=== PATIENT | female | born 1990 | race Caucasian/White ===

== ENCOUNTER 2017-07-25 11:50 | Inpatient (IN) | payer BC, OTHER ==
[~2017-07-25] VITALS: Ht 160 cm; Wt 55.8 kg
--- NOTE | 2017-07-25 15:45 | NUR ---
PRE-ASSESSMENT: Pre-Assessment done at intake office, client is A/O to name, place and situation, she presents with flat affect, anxious mood, pin point pupils noted, client's speech is fast, loud, incoherent, disorganized , she abruptly changes topics. Vitals T 98, RR 18, BP 128/80, HR 69, spO2 @ 99% on RA, Pain 0/10. She is fully ambulatory. She denies any allergies; she reports withdrawal-induced seizure (May 2017). PMH: Anxiety, Depression, ADHD. Medications taken at home Soma 3500mg TID PO Gabapentin 800mg TID PO. Ambien 10mg PO Azithromycin 250 mg PO daily Substance history Heroin 2gm smoked, (used to used via IV) daily for the past 5 days, last used 07/25/17 @ noon 1gm. Alprazolam 10mg PO daily for 7 years, last used 1 hr prior admission. Codeine 60mg (Promethazine 6.25mg/Codeine 10mg/5mL) PO for a year, last used 07/26/17. Adderall 10mg PO daily for 6 years, lasy used 07/26/17 Suboxone 15 film 15 daily SL for 8 months, last used 2 weeks ago. Subutex 18mg SL daily for 5 days, a week ago. Client informed on controlled substance, vital signs, blood drawn, and urine drug screen protocol, she verbalized understanding. Client reports a PCP, but declines to provide information.
[2017-07-25 17:32] LABS: *URINE HCG, QUAL NEGATIVE (NEGATIVE)
[2017-07-25 17:50] LABS: *AMPHETAMINE, URINE NEGATIVE (NEGATIVE); *BARBITURATE, URINE NEGATIVE (NEGATIVE); *CANNABINOID, URINE POSITIVE (NEGATIVE); *COCCAINE, URINE POSITIVE (NEGATIVE); *OPIATE, URINE POSITIVE (NEGATIVE); *PHENCYCLIDINE SCREEN,URINE NEGATIVE (NEGATIVE)
--- NOTE | 2017-07-25 18:00 | NUR ---
Nursing note 26 year old female admitted to [facility] for withdrawal from alprazolan and heroin. Client is oriented to unit, educated about protocols and how to work TV and call light in her room. Weight: 123 pounds. Height: 5'3" CIWA 3/COWS 3 Dr. Ragland notified. Urine was collected upon admission. All safety measures instituted. Seizure precaution. Call light within reach. Will continue to monitor.
[2017-07-25] MEDS ORDERED: ZOLP10TA6 PO (18:10)
[2017-07-25] MEDS ORDERED: GABA800T2 PO (18:10)
[2017-07-25] MEDS ORDERED: AZIT250T6 PO (18:10)
[2017-07-25] MEDS ORDERED: CARI350T27 PO (18:10)
--- NOTE | 2017-07-25 19:17 | NUR ---
END OF SHIFT Endorsed client to incoming nurse, client is in her room, watching TV. Seizure precautions rendered. Last CIWA 3/COWS 3. Adequate PO intake 700mL, void x 1. Side rails x 2 up/padded. Call light within reach.
--- NOTE | 2017-07-25 20:00 | NUR ---
ADMISSION NOTE Admitted a 26 y/o female px on 07/25/17 for Opiates/benzos/marijuana dependence, arrived on the unit at 1800. Pt has NKA, on regular diet, wishes to be on Full Code. Px was able to provide UDS. On admission at 1930, CIWA 15, COWS 13. BP: 114/60, P: 104, R: 18, O2: 95%, T: 98.7, Weight 123 lbs, height 5'3". Px PCP is Dr. Meza from [facility], Psychiatrist is Dr. Harvey Velazquez, cant recall the name of the clinic/hospital. Px is non-smoker. Px denies being hospitalized within past 30 days. Had hx of 3-4x seizure where the latest was May of 2017. Px is able to understand and respond to all questions pertaining to his hospitalization. Substance Abuse History is as follows: 1. Heroin 2 G smoke, previously IV, daily for past 5 days, last used 07/25/2017 at 1200, 1 G. 2. Marijuana 2 sticks/ day since highschool, last take was 07/25/2017, 1 stick 3. Alprazolam 10 mg, PO daily for 7 years, last use 1 hr prior admission. 4. Guaifenesin/Codeine phosphate 60 ml daily 5. Adderall 10 mg PO daily for 6 year, last used 07/25/2017 6. Suboxone 15 films SL daily for 8 months, last use was 2 weeks ago 7. Subutex 18 mg SL daily for 5 days last use 1 week ago Pxs longest sober period for 8 months 6 years ago. Px is first time in detox tx. PMH: Anxiety, depression and ADHD. Px brought medications from home, to be reconcile. Upon assessment, pt is AAOx4, presents with heightened anxiety, skin is flushed, and itching. Respirations even and unlabored. Denies SOB, chest pain, N/V/D. Bowel sounds active x 4, abdomen soft. PERRLA. Skin intact, no open wounds noted. Px denies SI/HI. Educational information provided and left at bedside. Safety measures in place. Call light within reach, side rails up x 2 and padded, bed locked and in low position. We'll continue to monitor. Addendum: 07/26/17 at 1518 by ASHOK BRASHER RN PT REPORTS USING SOMA AND AMBIEN DAILY. SEE MED RECON.
--- NOTE | 2017-07-25 20:15 | NUR ---
Ativan and Benadryl STAT Px has COWS 13 and CIWA 15, px is itching all over and flushed. Talked to Dr. Ragland. Ativan 1 mg/tab, 2 tabs and Benadryl 25mg/tab, 1 tab given PO as stat orders. We'll continue to monitor.
--- NOTE | 2017-07-25 21:15 | NUR ---
COWS and CIWA deferred COWS and CIWA deferred after and hour of administration of Ativan stat due to px is sleeping. We'll continue to monitor.
--- NOTE | 2017-07-25 22:00 | NUR ---
PRN meds Px complained of generalized pain, more on lowback, abdominal cramps. Robaxin 750mg/tab, 1 tab, Bentyl 20mg/tab, 1 tab given PO as PRN at 2200. Gabapentin 800mg given PO and Benadryl 50mg/cap, 1 cap given PO as PRN at 2213. We'll continue to monitor.
[2017-07-25 22:36] VITALS: BP 114/60
--- NOTE | 2017-07-25 23:00 | NUR ---
Reassessment of Pain and abdominal spasms Reassessment is deferred due to px is still sleeping. We'll continue to monitor.
[2017-07-26] VITALS: BP 103/59
--- NOTE | 2017-07-26 02:18 | NUR ---
PRN meds Px verbalized high anxiety and a need to sleep. Ativan 1mg/tab, 1 tab; Motrin 600mg; Vistaril 25mg given PO as PRN meds. We'll continue to monitor.
[2017-07-26] MEDS ORDERED: AMOX500C2 PO (02:53)
[2017-07-26] MEDS ORDERED: BUPR1FIL3 SL (02:53)
[2017-07-26] MEDS ORDERED: ALPR2TAB7 PO (02:53)
[2017-07-26] MEDS ORDERED: GUAI10SY2 PO (02:53)
[2017-07-26 04:00] VITALS: BP 106/63
--- NOTE | 2017-07-26 06:28 | NUR ---
PRN Robaxin Pt c/o back pain and requested for PRN Robaxin. Medication given and tolerated well. Will reassess within 1 HR. Will continue to monitor.
--- NOTE | 2017-07-26 07:11 | NUR ---
End of Shift Notes 26 y/o female px on 07/25/17 for Opiates/benzos/marijuana dependence, Pt has NKA, on regular diet, wishes to be on Full Code. During the shift, Px has COWS 13 and CIWA 15 at 1999, px is itching all over and flushed. Talked to Dr. Ragland. Ativan 1 mg/tab, 2 tabs and Benadryl 25mg/tab, 1 tab given PO as stat orders. At 2199, Px complained of generalized pain, more on lowback, abdominal cramps. Robaxin 750mg/tab, 1 tab, Bentyl 20mg/tab, 1 tab given PO as PRN at 2200. Gabapentin 800mg given PO and Benadryl 50mg/cap, 1 cap given PO as PRN at 2213. At 217, Px verbalized high anxiety and a need to sleep. Ativan 1mg/tab, 1 tab; Motrin 600mg; Vistaril 25mg given PO as PRN meds. Oral intake of 1 liter, voided 1, no BM. Slept for 8.5 hrs. Safety measures in place. Call light within reach, side rails up x 2 and padded, bed locked and in low position. We'll continue to monitor.
[2017-07-26 07:36] LABS: BASOPHILS % (AUTO) 0.3 % (0.0-2.0); EOSINOPHILS # (AUTO) 0.4 K/uL (0.0-0.7); EOSINOPHILS % (AUTO) 4.5 % (0.0-7.0); HEMATOCRIT 37.2 % (37-47); HEMOGLOBIN 11.8 G/DL (12.0-16.0); LYMPHOCYTES # (AUTO) 3.4 K/UL (0.8-4.8); LYMPHOCYTES % (AUTO) 38.8 % (20.5-51.5); MEAN CORPUSCULAR HEMOGLOBIN 25.4 UUG (27.0-31.0); MEAN CORPUSCULAR HGB CONC 32 g/dL (32.0-37.0); MEAN CORPUSCULAR VOLUME 79.9 FL (81.0-99.0); MONOCYTES # (AUTO) 0.3 K/UL (0.1-1.30); MONOCYTES % (AUTO) 3.4 % (0.0-11.0); NEUTROPHILS # (AUTO) 4.7 K/UL (1.8-8.9); PLATELET COUNT (AUTO) 255 K/UL (150-450); RED BLOOD CELL COUNT(AUTO) 4.66 MIL/UL (4.2-5.4); WHITE BLOOD COUNT (AUTO) 8.8 K/UL (4.0-11.2)
[2017-07-26 07:49] LABS: ETHANOL < 3 MG/DL (0-0)
[2017-07-26 07:54] LABS: ALANINE AMINOTRANSFERASE 24 U/L (14-59); ALKALINE PHOSPHATASE 66 U/L (50-136); AMYLASE 37 U/L (25-115); ASPARTATE AMINOTRANSFERASE 36 U/L (15-37); BILIRUBIN,TOTAL 0.7 mg/dL (0.2-1.0); CARBON DIOXIDE 29 mmol/L (21-32); CHLORIDE 108 mmol/L (98-107); CREATININE 0.8 mg/dL (0.6-1.3); GLUCOSE 93 mg/dL (74-106); LIPASE 54 U/L (73-393); MAGNESIUM 1.9 mg/dL (1.8-2.4); POTASSIUM 4.1 mmol/L (3.5-5.1); TOTAL PROTEIN, SERUM 6.6 g/dL (6.4-8.2); UREA NITROGEN, BLOOD 3 mg/dL (7-18)
--- NOTE | 2017-07-26 07:55 | NUR ---
START OF SHIFT: RECEIVED PT A/O X 4. PT PRESENTS WITH BIZARRE AFFECT AND CONGRUENT MOOD. SHE IS DEMANDING AND IRRITABLE. SHE STATES SHE WANTS HER MEDICINE GIVEN IV SHE MAY NOT BE ABLE TO HOLD IT DOWN. WILL ADMINISTER ZOFRAN ODT PRIOR TO AM MEDS. INFORMED HER MEDS ARE ORDERED PO. SHE C/O BODY ACHES ,IRRITABILITY,ANXIETY,CHILLS AND SWEATS. COWS 14 CIWA 8 SUBUTEX/ATIVAN TAPER TO START THIS AM.OFFERED SUPPORT. ENCOURAGED REST TODAY. WILL CONTINUE TO MONITOR AND PROVIDE SAFE AND SUPPORTIVE ENVIRONMENT.
[2017-07-26 08:00] VITALS: BP 102/66
--- NOTE | 2017-07-26 11:15 | NUR ---
PT STATES SHE STILL FEELS ANXIOUS WITH CHILLS AND SWEATS AND WANTS MORE ATIVAN. SHE STATES SHE IS ANXIOUS AND RESTLESS AND WANTS TO SLEEP. PRN CLONIDINE,ROBAXIN AND VISTARIL GIVEN TO ASSIST IN MANAGING S/S OF W/D. WILL MONITOR EFFECTIVENESS.
--- NOTE | 2017-07-26 11:54 | NUR ---
PT STATES THE PRN MEDS HELPED. WILL CONTINUE TO MONITOR AND OFFER SUPPORT.
[2017-07-26 12:00] VITALS: BP 114/50
--- NOTE | 2017-07-26 14:45 | NUR ---
Therapist encouraged client to come to group today and take part in their recovery.
[2017-07-26 16:00] VITALS: BP 97/38
--- NOTE | 2017-07-26 18:22 | NUR ---
PRN TORADOL AND PRN VISTARIL GIVEN FOR PAIN 6/10 GENERALIZED BODY AND ANXIETY. WILL MONITOR EFFECTIVENESS
--- NOTE | 2017-07-26 19:03 | NUR ---
END OF SHIFT: PT STARTED ON SUBUTEX/ATIVAN TAPER THAT WAS CHANGED TO VALIUM PER MD.LAST COWS 7 CIWA 4. SHE TOOK ONE DOSE OF SUBUTEX THIS AM AND STATED IT MADE HER SICK.SHE REFUSED SUBUTEX LATER IN DAY. SHE WAS GIVEN ZOFRAN PRIOR TO DETOX MED ADMINISTRATION WHICH WAS EFFECTIVE. SHE WAS GIVEN CLONIDINE VISTARIL AND MOTRIN FOR PAIN AND ANXIETY,CHILLS AND SWEATS. SHE IS DEMANDING AND VERBALIZED UNHAPPINESS WITH FEMALE NURSES.ADMINISTERED IM TORADOL RECENTLY AND GAVE PRN VISTARIL. ENDORSED TO REGIONAL TRUCK DRIVER NURSE.
--- NOTE | 2017-07-26 19:15 | NUR ---
START OF SHIFT NOTE : Pt. 26 y/o female admitted on 07/25/17 for Opiates/benzos/marijuana dependence. Pt has NKA, on regular diet, wishes to be on Full Code. Had hx of 3-4x seizure where the latest was May of 2017. Pt. presents with heightened anxiety, complains of mild body ache, generalized weakness. Respirations even and unlabored. Denies SOB, chest pain, N/V/D. Bowel sounds active x 4, abdomen soft. PERRLA. Skin intact, no open wounds noted. Px denies SI/HI. She is at the meeting right now. Safety measures in place. Call light within reach, side rails up x 2 and padded, bed locked and in low position. We'll continue to monitor.
--- NOTE | 2017-07-26 19:15 | NUR ---
RE-ASSESSMENT TORADOL AND VISTARIL Pt. states decreased levels of anxiety and pain, 12/25 now.Safety measures in place : bed on lowest position with side rails x2 up for safety, call light within reach. Will continue to monitor closely and offer help.
[2017-07-26 20:00] VITALS: BP 90/50
--- NOTE | 2017-07-26 21:00 | NUR ---
PRN BENADRYL, MOTRIN, VISTARIL, ROBAXIN Pt. complains of sleeplessness, increased level of anxiety, body ache 7/10, muscle spasm. PRN BENADRYL, MOTRIN, VISTARIL, ROBAXIN given as ordered. . Safety measures in place : bed on lowest position with side rails x2 up for safety, call light within reach. Will continue to monitor closely and offer help.
--- NOTE | 2017-07-26 21:55 | NUR ---
RE-ASSESSMENT MEHNAZ MCALLISTER VISTARIL, ROBAXIN Pt. is sleeping, RR=14, unlabored and even. Safety measures in place : bed on lowest position with side rails x2 up for safety, call light within reach. Will continue to monitor closely and offer help.
[2017-07-27] VITALS (7 sets, daily range): BP systolic 90–121; BP diastolic 58–87
--- NOTE | 2017-07-27 00:45 | NUR ---
PRN VALIUM Pt. complains of increased level of anxiety, felt tremor, flashes , CIWA=9. PRN VALIUM given as ordered. . Safety measures in place : bed on lowest position with side rails x2 up for safety, call light within reach. Will continue to monitor closely and offer help.
--- NOTE | 2017-07-27 01:45 | NUR ---
RE-ASSESSMENT VALIUM Pt. is sleeping, RR=14, unlabored and even, CIWA=7 when awake Safety measures in place : bed on lowest position with side rails x2 up for safety, call light within reach. Will continue to monitor closely and offer help.
--- NOTE | 2017-07-27 04:05 | NUR ---
PRN MOTRIN, VISTARIL, ROBAXIN Pt. complains of increased level of anxiety, body ache 7/10, muscle spasm. PRN MOTRIN, VISTARIL, ROBAXIN given as ordered. . Safety measures in place : bed on lowest position with side rails x2 up for safety, call light within reach. Will continue to monitor closely and offer help.
--- NOTE | 2017-07-27 04:45 | NUR ---
RE-ASSESSMENT HARLEEN DARBY ROBAXIN Pt. is sleeping, RR=14, unlabored and even. Safety measures in place : bed on lowest position with side rails x2 up for safety, call light within reach. Will continue to monitor closely and offer help.
[2017-07-27 06:06] LABS: HEPATITIS B SURFACE AG Negative (Negative)
--- NOTE | 2017-07-27 06:36 | NUR ---
END OF SHIFT NOTE : Pt. 26 y/o female admitted on 07/25/17 for Opiates/benzos/marijuana dependence. Pt has NKA, on regular diet, wishes to be on Full Code. Had hx of 3-4x seizure where the latest was May of 2017. Pt. was multiple times at the nursing station and asked for all PRN medication she can get. Pt remains partially compliant with the treatment plan. PRNs VISTARIL, ROBAXIN, MOTRIN, BENADRYL, VALIUM given during my shift. BP was low most of the time, HR=50-60/min, RR=16, even and unlabored, lungs clear upon auscultation, abdomen soft and non- distended. Pt denies nausea, vomiting and diarrhea. CIWA taken when pt. was alert during the night, LAST CIWA=7 at 0400 , [id number] ml, voided x3 , slept 3 hours. Safety measures in place : bed on lowest position with side rails x2 up for safety, call light within reach. Will continue to monitor closely and offer help.
--- NOTE | 2017-07-27 08:26 | NUR ---
START OF CARE 26 y/o female admitted 07/25/17 for Opiates/benzos/marijuana dependence. NKA, regular diet, Full Code. HX of 3-4x seizure, latest one in May of 2017. Received report from night RN. Slept 7 hours. Multiple PRN medications given for anxiety, pain, nausea. PRN Valium 10 mg given at midnight for COWS 9. Last COW 7 at 0400. 0826 patient rounds, pt at nurses station requesting medication with agitated tone/demeanor. Pt assessed. States anxiety 10/10, pain 10/10 in low back and legs, nausea 5/10. Pt assessed. COWS 16, CIWA 26. RN calling MD to notify of COWS/CIWA. Bed in low position, locked, side rails up x 2 and padded, call eastman within reach.
--- NOTE | 2017-07-27 08:30 | NUR ---
PRN MEDICATION ADMINISTRATION Clonidine PRN given for Pt reported anxiety 10/10. Will reassess. Pt reported back and leg pain /10, but refused toradol injection. Pt reported nausea 5/10, but refused Zofran SL.
--- NOTE | 2017-07-27 08:46 | NUR ---
ONE TIME VALIUM 10 MG ORDER COWS 16, CIWA 26. Notified Dr. Ragland. One time Valium 10 mg po ordered. RN took from [facility] a 10 mg Valium prn to expedite administration. Pharmacy notied.
--- NOTE | 2017-07-27 09:30 | NUR ---
PRN MEDICATION REASSESSMENT 829 pt received clonidine PRN for anxiety 07/27. At 0846, COWS 16, CIWA 26, given Valium [address] Ragland. 929, pt appears calmer, less agitated.
--- NOTE | 2017-07-27 09:46 | NUR ---
REASSESSMENT POST VALIUM COWS 6 and CIWA 12. Appears less anxious.
--- NOTE | 2017-07-27 11:11 | NUR ---
PRN MEDICATION ADMINISTRATION Given Valium [address] Niño.
--- NOTE | 2017-07-27 11:55 | NUR ---
VAGUE BODY MOTIONS Pt with 15 seconds vague body motion with eyes closed. Pt opened eyes and said, "I had a seizure.", "I need meds". Pulse 73, oxygen saturation 98 percent, Pt refused blood pressure. notified. Will continue to monitor.
--- NOTE | 2017-07-27 12:55 | NUR ---
ASSUMED CARE assumed care for patient at 1255, all pertinent information discussed. Patient endorsement report received from primary nurse. patient continues with 1: 1 for safety precautions. safety measures in place. call light kept with in reach, will continue to monitor closely. safety measures in place.
--- NOTE | 2017-07-27 12:55 | NUR ---
TRANSITION OF CARE 26 y/o female admitted 07/25/17 for Opiates/benzos/marijuana dependence. NKA, regular diet, Full Code. HX of 3-4x seizure, latest one in May of 2017. AM COWS [address] Ragland notified. Given additional Valium 10 mg po after pt had received her scheduled taper dose of Valium 10 gm. One hour later the COWS was [address] Niño assessed pt on rounds and ordered PRN Valium 10 mg x 1 to be given. Dose given at 1111. Pt was place on 1:1 monitor and room restriction in am by nurse discharge planner due to pt throwing items at RN administering medications. Pt multiple left room, follow by [employer]STOCK NUTRITION TERRITORY MANAGER, stating she needed to speak to her doctor, or requesting medication, with angry appearance. RN unable to assess 1211 COWS/CIWA as pt refusing vitals and being assessed by DON due to escalation of behavior. Report given to RN. RN notified that reassessment after last dose of Valium not done at 1211, RN states she will assess Pt. Bed in low position, side rails up x 2 and padded. Call light within reach. Fall and seizure measures in place.
--- NOTE | 2017-07-27 16:05 | NUR ---
PRN MOTRIN/CLONIDINE/VISTARIL Patient reports she feels increase in anxiety, reports feeling hot and cold, c/o chills and feeling agitated. Patient also reports pain to bilateral legs 7/10, provided patient with non pharmacological interventions. bp: 125/75 heart rate: 74, administered PRN clonidine as ordered, Vistaril as ordered, and Motrin as ordered, will monitor effectiveness of medication.
--- NOTE | 2017-07-27 17:05 | NUR ---
MOTRIN/CLONIDINE/VISTARIL REASSESSMENT Patient reports medications effective, current pain level 2/10 tolerable as per patient, reports feeling less anxious and less agitated, decrease in episodes of feeling hot/cold, will continue to monitor closely.
--- NOTE | 2017-07-27 19:01 | NUR ---
END OF SHIFT Patient alert and oriented x4, vital signs were stable during shift. Patient with admitting Dx: opiate/etoh dependence. Patient continues on modified Valium taper as ordered, well tolerate,d no ASE noted. Patient continues with 1:1 sitter for safety precautions. Behavior monitored closely during shift. Patient always approached in calm, friendly manner. Patient requires frequent calming reassurance. Patient noted easily agitated, encouraged patient to express feelings, non pharmacological interventions provided as needed. 1300 assessment patient presented with: tremors that can be felt but not seen, anxiety, restlessness, mild head fullness, mild bone and joint aches, with ciwa score of: 10 and cow score of: 4; 1700 assessment patient presented with: tremors that can be felt but not seen, anxiety, restlessness, mild head fullness, mild bone and joint aches, with ciwa score of: 10 and cow score of: 4. During assuming care for patient, patient received PRN: Motrin, clonidine, and Vistaril as ordered, medication effective, one hour post administration. encouraged to attend group therapies/sessions to learn new coping skills to prevent relapse, preferred to stay in room, despite much encouragement. Patient denies SI/HI. Patient encouraged adequate PO fluid intake as tolerated. Safety measures in place. Fall and seizure precautions in place. call light kept with in reach, safety measures in place. will continue to monitor closely. patient endorsed to overnight stocker nurse, all pertinent information discussed.
--- NOTE | 2017-07-27 20:00 | NUR ---
Start of Shift Notes Received 26 y/o female, alert and oriented x4. Patient with admitting Dx: opiate/benzos and marijuana dependence. Patient continues on modified Valium taper as ordered. Patient continues with 1:1 sitter for safety precautions. During the rounds at 1930, px verbalized heightened anxiety, tremors that can be felt but not seen, restlessness, bone and joint aches, COWS 6, CIWA 8. Px requested to take the night meds at 1999. Patient encouraged adequate PO fluid intake as tolerated to help in detox. Safety measures in place. Fall and seizure precautions in place. Call light kept within reach, We'll continue to monitor closely.
--- NOTE | 2017-07-27 20:22 | NUR ---
PRN Benadryl Px, asked a pill to help her sleep tonight. Benadryl 50m/cap, 1 cap given PO as PRN med. We'll continue to monitor.
--- NOTE | 2017-07-27 21:00 | NUR ---
MD and Psychiatrist communication: Pt exhibiting agitation and verbalized anxiety. Nonpharmacological methods ineffective. Pt stated she wanted medications to calm down. MD and Psychiatrist made aware. MD to put in order for an additional 10mg of Valium PO ONE TIME. Psychiatrist with new order for 100mg Seroquel PO HSPRN for sleep and 50mg Q4HPRN for anxiety/agitation. Will continue to monitor.
--- NOTE | 2017-07-27 21:16 | NUR ---
PRN Seroquel and Valium Px is so agitated and very anxious, px wants to have more meds to make her sleep. Seroquel 100mg/tab and Valium 10mg/tab, 1 tab given PO. We'll continue to monitor.
--- NOTE | 2017-07-27 21:51 | NUR ---
PRN meds for pain Px is in pain 10/10 as verbalized. Px is crying, moaning, shouting, can't sit still due to pain. Robaxin 750mg/tab, 1 tab; Motrin 600mg/tab, 1 tab; Tylenol 325mg/tab, 2 tabs given PO as PRN meds. We'll continue to monitor.
--- NOTE | 2017-07-27 22:33 | NUR ---
Meds for Agitation and Anxiety Yadira is so anxious and agitated right now. Px demands more medications to help her sleep. Px verbalizes "I am angry right now, I want to talk to Dr. Niño, none of the medications you're giving me are effective". Seroquel 25 mg/tab, 1 tab; Minipress 1 mg/tab, 1 tab; Vistarel 50mg/cap, 1 cap given PO. We'll continue to monitor. Addendum: 07/28/17 at 0322 by TYLOR EID RN Correction Px was given Seroquel 25mg/tab, 2 tabs given.
--- NOTE | 2017-07-27 23:00 | NUR ---
Toradol Inj. Px is still in pain. Px is crying, moaning, stretching her legs. Px verbalized "The medications that you are giving are not effective, I am still in pain. 07/27". Toradol inj 60 mg/2ml, 2 ml given IM as stat order and Subutex 2mg/tab, 1 tab given SL. Explained to the px that she has to wait few mins for the medications to kick in. Px seems not to care on what is explained. We'll continue to monitor.
[2017-07-28] VITALS: BP 110/70
--- NOTE | 2017-07-28 | NUR ---
Pain reassessment Px is still in pain. Px verbalized 03/27. No moaning, and no crying noted. We'll continue to monitor.
--- NOTE | 2017-07-28 01:10 | NUR ---
Psychiatrist Communication: Pt still exhibiting agitation. Pt requesting for additional sleep medication. Pt stated "I need more medication because I haven't slept for three days". Explained to pt about receiving multiple medications earlier in the shift to help her. MD aware of med-seeking behavior. Psychiatrist made aware. New order for additional 100mg Seroquel PO. Will continue to monitor.
--- NOTE | 2017-07-28 01:22 | NUR ---
Seroquel stat Px is still awake and demands more medications to help her sleep. Seroquel 100 mg/tab, 1 tab given PO as stat order. We'll continue to monitor.
[2017-07-28 04:00] VITALS: BP 106/57
--- NOTE | 2017-07-28 05:27 | NUR ---
PRN Seroquel, Bentyl, Zofran Px woke up around 5am. Px complained about her being deprived of sleep, nauseated and has abdominal spasms. Seroquel 25 mg/tab, 2 tabs; Bentyl 20 mg/tab, 1 tab given PO and Zofran 4 mg/tab, 1 tab given SL as PRN meds. We'll continue to monitor.
--- NOTE | 2017-07-28 06:00 | NUR ---
Reassessment of Nausea and Sleeplessness Px is already sleeping at this moment. Respirations are even and unlabored. We'll continue to monitor.
--- NOTE | 2017-07-28 07:09 | NUR ---
End of Shift Notes 26 y/o female, alert and oriented x4. Patient with admitting Dx: opiate/benzos and marijuana dependence. NKA, Full code, regular diet. Patient continues on modified Valium taper as ordered. Patient continues with 1:1 sitter for safety precautions. During the shift, Px wanted to sleep and has heightened axiety, experienced 10/10 pain, focused on LE, manifested by crying, moaning, being angry, agitation, restlessness, and irritability. Benadryl 50m/cap, 1 cap given PO as PRN med at 2021. Seroquel 100mg/tab and Valium 10mg/tab, 1 tab given PO at 2115. Robaxin 750mg/tab, 1 tab; Motrin 600mg/tab, 1 tab; Tylenol 325mg/tab, 2 tabs given PO as PRN meds at 2150. Seroquel 25 mg/tab, 2 tabs; Minipress 1 mg/tab, 1 tab; Vistarel 50mg/cap, 1 cap given PO at 2232. Toradol inj 60 mg/2ml, 2 ml given IM as stat order and Subutex 2mg/tab, 1 tab given SL at 2300. Seroquel 100 mg/tab, 1 tab given PO as stat order at 0122. Px woke up around 5am complained about her being deprived of sleep, nauseated and has abdominal spasms. Seroquel 25 mg/tab, 2 tabs; Bentyl 20 mg/tab, 1 tab given PO and Zofran 4 mg/tab, 1 tab given SL as PRN meds. Patient encouraged to take 2-3 L fluid daily or as tolerated to help in detox. Watch out for drug seeking behavior of the px. Oral intake of 1,100 ml, voided 1x, no BM. Slept for 3 hrs[address] Safety measures in place. Fall and seizure precautions in place. Call light kept within reach. We'll continue to monitor closely.
--- NOTE | 2017-07-28 07:34 | NUR ---
START OF SHIFT NOTE : Received report from oyster washer nurse. Pt. 26 y/o female admitted on 07/25/17 for Opiates/benzos/marijuana dependence. Pt on a modified Valium taper. Per oyster washer nurse, pt has been refusing Subutex. Pt is on a 1:1 for safety. BHT @ bedside. Pt is alert and oriented X4. Color good, skin warm and dry. Respirations even and unlabored. Pt resting in bed. Safety precautions observed. Call light within reach. Will continue to monitor.
--- NOTE | 2017-07-28 08:30 | NUR ---
Pt states she would like another Valium 10mg. Dr. Niño notified.
[2017-07-28 09:06] VITALS: BP 106/57
--- NOTE | 2017-07-28 10:29 | NUR ---
Pt c/o pain. She declined Toradol and other medications.
--- NOTE | 2017-07-28 11:54 | NUR ---
Clonidine 0.1mg po prn given for anxiety.
[2017-07-28 12:13] VITALS: BP 114/68
--- NOTE | 2017-07-28 13:00 | NUR ---
Pt states anxiety lessened after Clonidine prn
--- NOTE | 2017-07-28 13:50 | NUR ---
Toradol 30mg IM prn given for muscle aches 05/27
--- NOTE | 2017-07-28 13:54 | NUR ---
Therapist invited client to groups today. CLient agreed to attempt to make group.
--- NOTE | 2017-07-28 14:08 | NUR ---
VSS CIWA 5 Main complaints are anxiety and body aches
--- NOTE | 2017-07-28 14:26 | NUR ---
Pt attending group and states "I'm in a good mood."
--- NOTE | 2017-07-28 14:52 | NUR ---
Pt states pain 5/10 after Toradol prn
--- NOTE | 2017-07-28 15:39 | NUR ---
COWS 15 Subutex 4mg sl prn given and Robaxin 750mg po prn given for muscle aches.
--- NOTE | 2017-07-28 15:47 | NUR ---
Seroquel 50mg po prn given for severe agitation
--- NOTE | 2017-07-28 15:59 | NUR ---
Pt endorsed to HENRIQUE Grewal
[2017-07-28 16:00] VITALS: BP 139/82
--- NOTE | 2017-07-28 16:00 | NUR ---
Assumed Care Pt is a 26 year old female, admitted for Opiate/Benzo and Marijuana dependence. Pt is on a Valium taper. PMH: Anxiety, Depression and ADHD. NKA, regular diet, fall/seizure precautions and full code. Subutex 4mg PRN, Robaxin 750mg PRN and Seroquel 50mg PRN administered by day shift nurse at 1557. At time of reassessment, Pt is in room, in bed and presents with irritated mood, is agitated, speaks and demands in loud tone of voice. Pt is able to be redirected, is painting to "keep her calm" as stated by pt. Safety measures in place, 1:1 Sitter is at bedside for safety, call light within reach, side rails up x2, bed locked and in low position. Will continue to monitor.
--- NOTE | 2017-07-28 16:20 | NUR ---
PRN Administration Vistaril 50mg PRN administered for anxiety. Safety measures in place. Will continue to monitor.
--- NOTE | 2017-07-28 17:20 | NUR ---
PRN Reassessment Pt is in room, painting and watching television. Sitter at bedside, safety measures in place. Will continue to monitor.
[2017-07-28 20:00] VITALS: BP 131/77
--- NOTE | 2017-07-28 22:05 | NUR ---
PRN Administration Pt is agitated, irritated and states, "I need my Seroquel to sleep!" Seroquel 100mg tabs unavailable. Order is for 2 100mg tablets. Seroquel 200mg tab administered. Sitter at bedside. Safety measures in place. Will continue to monitor.
--- NOTE | 2017-07-28 23:05 | NUR ---
PRN Reassessment Pt is in room, eyes closed, resting, respirations even/unlabored. Sitter at bedside. Safety precautions in place. Will continue to monitor.
[2017-07-29] VITALS: BP 112/78
--- NOTE | 2017-07-29 00:27 | NUR ---
PRN Administration Pt is agitated, reports she is anxious. Pt states in loud tone of voice, "I woke up, I still can't sleep, my body hurts" Pt demands, "I need more meds!" Seroquel 50mg PRN and Robaxin 750mg PRN administered. Sitter at bedside, Safety measures in place. Will continue to monitor.
--- NOTE | 2017-07-29 01:27 | NUR ---
PRN Reassessment Upon reassessment, pt is back in bed, with eyes closed. sitter at bed side will continue to monitor.
--- NOTE | 2017-07-29 01:46 | NUR ---
Subutex PRN Pt woke up, extremely agitated, reports feeling very anxious with body aches. Pt reports feeling generalized body pain 10/10, skin is clammy and sweating profusely, pt reports feeling restless. COWS 13, Subutex 4mg PRN Administered. Sitter at bedside, will continue to monitor.
--- NOTE | 2017-07-29 02:00 | NUR ---
Behavioral Note Pt is extremely agitated, is demanding in loud tone of voice for more medications. Pt exhibits med seeking behavior. Pt does not respond to redirection and remains disrespectful to staff. Pt denies the effectiveness of the scheduled and PRN medications that are being administered. She repeatedly asks for medications that causes sedation without allowing previous medication to take effect. Pt re-educated about the parameters of medication administration. Pt remains passive with education. Sitter at bedside will continue to monitor.
--- NOTE | 2017-07-29 02:16 | NUR ---
Subutex Reassessment COWS 11 Subutex effective. Sitter at bedside, safety precautions , will continue to monitor.
[2017-07-29 04:00] VITALS: BP 101/78
--- NOTE | 2017-07-29 07:00 | NUR ---
End of Shift Pt is a 26 year old female, admitted for Opiate/Benzo and Marijuana dependence. Pt is on a Valium taper. PMH: Anxiety, Depression and ADHD. NKA, regular diet, fall/seizure precautions and full code. During shift, pt was agitated, irritable, spoke in loud tone of voice, demanding. Pt reported feeling body/muscle aches, restlessness, hot/cold sensations - scheduled medications administered, latest COWS 12, CIWA 5. Vistaril 50mg PRN administered. Seroquel 200mg PRN administered for sleep. Seroquel 50mg PRN and Robaxin 750mg PRN administered for agitation and muscle aches. Subutex 4mg PRN administered for COWS 13, score decreased to COWS 11. Pt slept for 7 hours, intake of 250 ml PO, voids x1 and stool x0. 1:1 sitter at bedside. Safety measures in place, call light within reach, side rails up x2, bed locked and in low position. Endorsed to day shift nurse.
--- NOTE | 2017-07-29 08:00 | NUR ---
START OF SHIFT Rcvd endorsement from ongoing nurse, client is in room, she is a/o x 4, she presents with anxious mood, flat affect, she is fully ambulatory. She is on 1:1 sitter for safety precautions d/t hx of withdrawal-induced seizure. She reports anxiety, restless legs, fatigue, and low back pain 05/27, but wants to take her pain medication after she finish eating breakfast, she stated "I will call you, when I need it." Client denies any N/V/D. Client denies any SI/HI. Encourage client to attend group therapy for skills to maintain sober, she verbalized understanding. Encourage client to increase PO fluid intake as tolerated to facilitate detox. Client is a 26 yo female, admitted to [facility] for withdrawal from alprazolam and heroin. She is on 5 day Diazepam taper (day 4), tolerating well with no ASE. Subutex 2 mg SL q4h PRN COWS 8-11, Subutex 4 mg SL q4h PRN COWS >/=12. Last CIWA 5/COWS 11 @ 0246. PRN Seroquel 200mg PO for inability to sleep, Seroquel 50mg for anxiety/agitation. Vistaril 50mg PO for anxiety, Robaxin 750mg PO for muscle pain, Subutex 4mg SL for COWS 13 after 0.5 hr COWS 11. Client slept 7 hrs. Client reported NKA, full code, regular diet. Seizure precautions. Side rails x 2 up/padded, bed in lowest/lock position. Call light within reach.
[2017-07-29 08:03] VITALS: BP 126/61
--- NOTE | 2017-07-29 09:24 | NUR ---
PRN Robaxin 750mg PO for muscle pain on lower back area. Will continue to monitor. call light within reach. Sitter at bedside.
--- NOTE | 2017-07-29 10:24 | NUR ---
Reassessment PRN Robaxin 750mg PO effective client verbalizes pain relief from 6/10 to 1/10, but tolerable. Call light within reach. Sitter at bedside.
[2017-07-29 12:09] VITALS: BP 110/60
--- NOTE | 2017-07-29 13:55 | NUR ---
Therapist met with client and encouraged her to attend groups today. Client agreed to come to group,
[2017-07-29 16:00] VITALS: BP 116/67
--- NOTE | 2017-07-29 19:12 | NUR ---
END OF SHIFT Endorsed client to incoming nurse, client is a 26 yo female, admitted to [facility] for withdrawal from alprazolam and heroin. She is on 5 day Diazepam taper (day 4), tolerating well with no ASE. Subutex 2 mg SL q4h PRN COWS 8-11, Subutex 4 mg SL q4h PRN COWS >/=12. Last CIWA 5/COWS 11 @ 0246. Last CIWA 6/ COWS 6 @ 1600. PRN Robaxin 750mg PO for muscle pain on lower back area, noted effective. Client is in room, she is a/o x 4, she continues to presents with anxious mood, flat affect, she is fully ambulatory. She is on 1:1 sitter for safety precautions d/t hx of withdrawal-induced seizure. Client was compliant with 1/3 of group therapy. Adequate PO intake 2455mL, void x 1, stool x 1. Client reported NKA, full code, regular diet. Seizure precautions. Side rails x 2 up/padded, bed in lowest/lock position. Call light within reach.
--- NOTE | 2017-07-29 19:39 | NUR ---
Start of Shift Patient is a 26 yo female, admitted to [facility] on 07-25-17 for opiate and benzo detox. She is on 5 day Valium taper as well as Subutex 2 mg SL q4h PRN COWS 8-11, Subutex 4 mg SL q4h PRN COWS >/=12. Last CIWA 6/COWS 6 at 1600 per AM nurse She is on 1:1 for safety precautions d/t withdrawal-induced seizure. No noted seizure activity as of late. Client reported NKA, is a full code, regular diet. Seizure precautions. Side rails x 2 up/padded, bed in lowest/lock position. Call light within reach.
--- NOTE | 2017-07-29 19:55 | NUR ---
Behavioral Note: REFUELING [employer]PERVISOR Chiquita on 1:1 with client, notified Charge Nurse Sigrid that client was insisting that she was no longer on room restriction. Charge Nurse and Primary Nurse, Azalia, confirmed that client as to remain on room restriction. Client then left room after REFUELING RAMP SUPERVISOR Chiquita informed client that she was not allowed to leave the room. Client came to the nurse's station and became confrontational with Charge Nurse and insisting that she was no longer on room restriction, stating "Dr Niño told me that I wasn't on room restriction anymore. He was laughing about it." Client informed that staff would claify order for room restriction with Dr Niño, but until that time she would need to return to her room. Patient continue to argue for several more minutes, becoming verbally abusive with staff. Patient eventually complied and returned to her room. Dr Niño and Martin JACOBS contacted and order for room restriction was confirmed.
--- NOTE | 2017-07-29 20:00 | NUR ---
Assessment of patient Patient reporting she is "not on room restriction". She states the staff is lying and she is only supposed to be on "one to one". Charge nurse was notified and contacted MD. Nursing staff reiterated the MD order is for patient to remain on 1:1 and room restriction for safety. Patient then stated she wished to be discharged. Despite education and program counselor patient continued to adamantly insist on discharge. MD notified.
[2017-07-29 20:06] VITALS: BP 103/60
--- NOTE | 2017-07-29 20:53 | NUR ---
AMA Note: Pt states that she wants to leave AMA d/t not wanting to comply with room restriction. Pt states she believes staff members are "lying about the room restriction, and Dr Niño will feel bad when he finds out I left AMA because of you guys." Pt educated about the risks and consequences of leaving AMA; pt verbalized understanding but still requested to leave. AMA paperwork signed. Multiple staff members spoke to pt without any success. VS WNL, pt denies suicidal/homicidal ideations, Dr Niño is aware. Pt was given a list of community resources in case she is in need of help. All belongings returned to pt. Pt off the unit at 20:28 on 07/29/17, and patient was off hospital property at 20:53 and left by [employer].
== END 2017-07-29 20:53 | disposition left against medical advice (07) | DRG 894 ==
LOC: SRC 14:34
PROVIDERS: ADMIT Internal Medicine; ATTEND Internal Medicine
PROC: HZ2ZZZZ Detoxification Services for Substance Abuse Treatment (ICD-10-PCS; principal; 2017-07-25)
PROC: HZ31ZZZ Individual Counseling for Substance Abuse Treatment, Behavioral (ICD-10-PCS; 2017-07-28)
PROC: HZ41ZZZ Group Counseling for Substance Abuse Treatment, Behavioral (ICD-10-PCS; 2017-07-28)
DX: F11.23 Opioid dependence with withdrawal (principal); F32.9 Major depressive disorder, single episode, unspecified; D50.9 Iron deficiency anemia, unspecified; F41.0 Panic disorder [episodic paroxysmal anxiety]; F17.210 Nicotine dependence, cigarettes, uncomplicated; F15.23 Other stimulant dependence with withdrawal; F13.232 Sedative, hypnotic or anxiolytic dependence with withdrawal with perceptual disturbance; F90.9 Attention-deficit hyperactivity disorder, unspecified type; Z91.89 Other specified personal risk factors, not elsewhere classified; Z90.49 Acquired absence of other specified parts of digestive tract; Z81.8 Family history of other mental and behavioral disorders; G47.00 Insomnia, unspecified; F60.3 Borderline personality disorder; F12.90 Cannabis use, unspecified, uncomplicated
CPT/HCPCS: 36415; 70030-TC; 80307; 80346; 80349; 80353; 80361; 83690; 83735; 84703; 85025; 86592; 86705; 86803; 87340; 87806; A4663; G0480; J1885; Q0144; Q0162; Q0163